=== PATIENT | female | born 1935 | race Caucasian/White ===

== ENCOUNTER 2018-06-29 04:00 | Emergency (ER) | payer MEDICARE, OTHER ==
[~2018-06-29] VITALS: Ht 160 cm; Wt 76.2 kg
[2018-06-29 04:15] LABS: BASOPHILS # (AUTO) 0.1 (0.0-0.1); BASOPHILS % 0.5 % (0.0-1.0); EOSINOPHILS # (AUTO) 0.1 (0.0-0.4); EOSINOPHILS % 0.6 % (0.0-6.0); HEMATOCRIT 40.5 % (34.2-44.1); HEMOGLOBIN 13.4 g/dL (12.0-16.0); LYMPHOCYTES # (AUTO) 1.4 (1.0-3.2); LYMPHOCYTES % 12.3 % (18.0-39.1); MEAN CORPUSCULAR HEMOGLOBIN 30.6 pg (28-32); MEAN CORPUSCULAR HGB CONC 33.1 g/dL (31-35); MEAN CORPUSCULAR VOLUME 92.5 fL (81-99); MONOCYTES # (AUTO) 0.7 (0.2-0.8); MONOCYTES % 6.1 % (4.4-11.3); NEUTROPHILS # (AUTO) 9.3 (2.1-6.9); NEUTROPHILS % 80.2 % (38.7-80.0); PLATELET COUNT 281 x10e3/uL (140-360); RED BLOOD COUNT 4.38 x10e6/uL (3.6-5.1); RED CELL DISTRIBUTION WIDTH 12.9 % (11.7-14.4)
[2018-06-29 04:24] LABS: INR 1.07; PROTHROMBIN TIME 13.1 seconds (11.9-14.5)
[2018-06-29 04:25] LABS: PARTIAL THROMBOPLASTIN TIME 27.7 seconds (23.8-35.5)
[2018-06-29 04:33] LABS: ALBUMIN 3.4 g/dL (3.5-5.0); ALBUMIN/GLOBULIN RATIO 0.9 (0.8-2.0); ANION GAP 13.2 mmol/L (8-16); CALCIUM 9.4 mg/dL (8.4-10.2); CREATININE, SERUM 0.92 mg/dL (0.57-1.11); POTASSIUM 4.2 mmol/L (3.5-5.1)
[2018-06-29] MEDS ORDERED: ONDANSETRON HCL INJ 2 MG/ML VIAL IV STA (05:29)
[2018-06-29] MEDS ORDERED: MORPHINE SULFATE INJ 4 MG/ML INJ IV PRN (05:30)
[2018-06-29] MEDS ORDERED: MORPHINE SULFATE 2 MG/ML SYR ONE (05:40)
--- NOTE | 2018-06-29 05:40 | Diagnostic Imaging Report ---
Exam: CT of the pelvis without IV contrast Indication: Fall, left hip pain Comparison: None Findings: CT of the pelvis was performed using routine protocol without the administration of IV contrast. Dose modulation, iterative reconstruction, and/or weight based adjustment of the mA/kV was utilized to reduce the radiation dose to as low as reasonably achievable. Old right intertrochanteric fracture stabilized with internal medullary diaz and interlocking screw. No evidence of an acute fracture. Faint lucencies in the sacrum near the bilateral sacroiliac joint likely reflects chronic insufficiency fractures. The bones are demineralized. Degenerative changes of the pelvis and hips. No acute intrapelvic pathology. The uterus and ovaries are not visualized. Impression: No evidence of a left hip fracture. Signed by: Dr. Laura James M.D. on 06/29/2018 5:14 AM
--- NOTE | 2018-06-29 05:41 | Diagnostic Imaging Report ---
EXAM: ELBOW LEFT COMPLETE, AP, lateral and oblique INDICATION: Fall, left elbow pain COMPARISON: None FINDINGS: Rotated lateral view. BONES: No acute fractures. JOINTS: No malalignment. Degenerative changes of the elbow. SOFT TISSUES: IV catheter in the antecubital fossa. IMPRESSION: No acute left elbow fracture. Signed by: Dr. Laura James M.D. on 06/29/2018 5:14 AM
--- NOTE | 2018-06-29 06:37 | Diagnostic Imaging Report ---
History: Fall. Comparison studies: None Technique: Axial images were obtained through the cervical region.. Coronal and sagittal images reconstructed from the axial data. Dose modulation, iterative reconstruction, and/or weight based adjustment of the mA/kV was utilized to reduce the radiation dose to as low as reasonably achievable. Intravenous contrast: None Findings: Fractures: None. Soft tissue injuries: None. Atlantoaxial articulation: Intact. Alignment: Loss of normal cervical lordosis is either positional or due to muscle spasm. No scoliosis. Cervicomedullary junction: No abnormalities. The foramen magnum is patent. Soft tissues: 8 mm hypodense nodule in right lobe of the thyroid gland. Vertebrae: No fractures, infection or neoplasm. Degenerative changes: C3-C4: Posterior disc osteophyte complex without canal stenosis. Severe right foraminal stenosis due to facet and uncovertebral arthrosis. C4-5: Bilateral uncovertebral arthrosis without significant foraminal stenosis. C5-C6: Mild degenerative disc disease. Mild right foraminal stenosis due to facet and uncovertebral arthrosis. C6-C7: Mild right foraminal stenosis due to facet and uncovertebral arthrosis. IMPRESSION: 1. No acute cervical spine fracture/dislocation. Loss of normal cervical lordosis is either positional or due to muscle spasm. 2. Ligament, spinal cord and or vascular abnormalities cannot be excluded on the basis of this examination. 3. Cervical spondylosis as detailed above. Signed by: Dr. Medina Peña M.D. on 06/29/2018 6:33 AM
--- NOTE | 2018-06-29 06:39 | Diagnostic Imaging Report ---
EXAMINATION: Head CT without contrast. HISTORY:Fall. COMPARISON:None. TECHNIQUE: Multidetector axial images were obtained from the foramen magnum to the vertex without contrast. The images were reconstructed using brain and bone algorithms. Thin section brain images were reformatted into coronal and sagittal planes. Dose modulation, iterative reconstruction, and/or weight based adjustment of the mA/kV was utilized to reduce the radiation dose to as low as reasonably achievable. Intravenous contrast: None IMAGE QUALITY: Acceptable. FINDINGS: Skull/scalp: No lytic or blastic. lesions. No surgical changes. Parenchyma: Nonspecific few, scattered supratentorial white matter hypodensity are likely related to small vessel ischemic changes. 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 No acute hemorrhage, mass or acute major vascular territorial infarct. Arteries: No density suggestive of thrombosis. Mild atherosclerotic calcification in bilateral carotid siphon. Dural sinuses: No abnormal density suggestive of thrombosis. Ventricles: Mild compensated dilatation due to volume loss. No hydrocephalus. Extra-axial spaces: No abnormal density. Brain volume: Normal for age. Craniocervical junction: No mass, Chiari malformation, or basilar invagination. Sella: No mass. Paranasal/mastoid sinuses: Imaged portions unremarkable. IMPRESSION: No acute intracranial abnormality. Mild supratentorial white matter microvascular ischemic changes. Mild generalized age-related cerebral volume loss. Signed by: Dr. Medina Peña M.D. on 06/29/2018 6:36 AM
[2018-06-29 07:18] VITALS: BP 142/66
== END 2018-06-29 07:48 | disposition home or self-care (01) ==
LOC: ER 04:00
DX: S00.83XA Contusion of other part of head, initial encounter (principal); S50.01XA Contusion of right elbow, initial encounter; S70.02XA Contusion of left hip, initial encounter; W06.XXXA Fall from bed, initial encounter; Y93.84 Activity, sleeping; Y92.128 Other place in nursing home as the place of occurrence of the external cause
CPT/HCPCS: 36415; 70450; 72125; 72192; 73080; 80053; 85025; 85610; 85730; 93005; 99284; J2270; J2405

== ENCOUNTER 2019-04-23 22:18 | Emergency (ER) | payer MEDICARE, OTHER ==
[~2019-04-23] VITALS: Ht 160 cm; Wt 76.2 kg
--- OUTSIDE RECORDS SUMMARY | 2019-04-23 22:21 | XMS REPORT ---
Author Author [facility] Address Unknown Phone Unavailable Care Team Providers Care Counselor Aide Name Role Phone Nickolas OCONNOR Unavailable Unavailable Payers Payer Name Policy Type Policy Number Effective Date Expiration Date Problems This patient has no known problems. Allergies, Adverse Reactions, Alerts Allergy Name Allergy Type Status Severity Reaction(s) Onset Date Inactive Date Treating Clinician Comments meclizine DA Active [place] 2015-04-02 00:00:00 penicillin G DA Active [place] 2014-02-05 00:00:00 Medications This patient has no known medications. Results Test Description Test Time Test Comments Text Results Atomic Results Result Comments CT CERVICAL SPINE WO 2018-06-29 06:29:00 [place] [address] Patient Name: IGGY STALLINGS MR #: [id number] : 1935 Age/Sex: 82/F Req #: [id number] [facility] Physician: Ordered by: JAMIE OCONNOR MD Report #: [id number] Location: ER Room/Bed: Procedure: [id number] CT/CT CERVICAL SPINE WO Exam Date: 06/29/18 Exam Time: 06 REPORT STATUS: Signed History: Fall. Comparison studies: None Technique: Axial images were obtained through the cervical region.. Coronal and sagittal images reconstructed from the axial data. Dose modulation, iterative reconstruction, and/or weight based adjustment of the mA/kV was utilized to reduce the radiation dose to as low as reasonably achievable. Intravenous contrast: None Findings: Fractures: None. Soft tissue injuries: None. Atlantoaxial articulation: Intact. Alignment: Loss of normal cervical lordosis is either positional or due to muscle spasm. No scoliosis. Cervicomedullary junction: No abnormalities. The foramen magnum is patent. Soft tissues: 8 mm hypodense nodule in right lobe of the thyroid gland. Vertebrae: No fractures, infection or neoplasm. Degenerative changes: C3-C4: Posterior disc osteophyte complex without canal stenosis. Severe right foraminal stenosis due to facet and uncovertebral arthrosis. C4-5: Bilateral uncovertebral arthrosis without significant foraminal stenosis. C5-C6: Mild degenerative disc disease. Mild right foraminal stenosis due to facet and uncovertebral arthrosis. C6-C7: Mild right foraminal stenosis due to facet and uncovertebral arthrosis. IMPRESSION: 1. No acute cervical spine fracture/dislocation. Loss of normal cervical lordosis is either positional or due to muscle spasm. 2. Ligament, spinal cord and or vascular abnormalities cannot be excluded on the basis of this examination. 3. Cervical spondylosis as detailed above. Signed by: Dr. Medina Peña M.D. on 06/29/2018 6:33 AM Dictated By: MEDINA PEÑA MD 2 Transcribed By: OMAR on 06/29/18632 COPY TO: JAMIE OCONNOR MD CT BRAIN WO 2018-06-29 06:27:00 [place] [address] Patient Name: IGGY STALLINGS MR #: [id number] : 1935 Age/Sex: 82/F Req #: [id number] Adm Physician: Ordered by: JAMIE OCONNOR MD Report #: [id number] Location: Room/Bed: Procedure: [id number] CT/CT BRAIN WO Exam Date: 06/29/18 Exam Time: 604 REPORT STATUS: Signed EXAMINATION: Head CT without contrast. HISTORY:Fall. COMPARISON:None. TECHNIQUE: Multidetector axial images were obtained from the foramen magnum to the vertex without contrast. The images were reconstructed using brain and bone algorithms. Thin section brain images were reformatted into coronal and sagittal planes. Dose modulation, iterative reconstruction, and/or weight based adjustment of the mA/kV was utilized to reduce the radiation dose to as low as reasonably achievable. Intravenous contrast: None IMAGE QUALITY: Acceptable. FINDINGS: Skull/scalp: No lytic or blastic. lesions. No surgical changes. Parenchyma: Nonspecific few, scattered supratentorial white matter hypodensity are likely related to small vessel ischemic changes. 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 No acute hemorrhage, mass or acute major vascular territorial infarct. Arteries: No density suggestive of thrombosis. Mild atherosclerotic calcification in bilateral carotid siphon. Dural sinuses: No abnormal density suggestive of thrombosis. Ventricles: Mild compensated dilatation due to volume loss. No hydrocephalus. Extra-axial spaces: No abnormal density. Brain volume: Normal for age. Craniocervical junction: No mass, Chiari malformation, or basilar invagination. Sella: No mass. Paranasal/mastoid sinuses: Imaged portions unremarkable. IMPRESSION: No acute intracranial abnormality. Mild supratentorial white matter microvascular ischemic changes. Mild generalized age-related cerebral volume loss. Signed by: Dr. Medina Peña M.D. on 06/29/2018 6:36 AM Dictated By: MEDINA PEÑA MD 5 Transcribed By: OMAR on 06/29/18635 COPY TO: JAMIE OCONNOR MD CT PELVIS WO 2018-06-29 05:07:00 [place] [address] Patient Name: IGGY STALLINGS MR #: [id number] : 1935 Age/Sex: 82/F Req #: [id number] Adm Physician: Ordered by: JAMIE OCONNOR MD Report #: [id number] Location: ER Room/Bed: Procedure: [id number] CT/CT PELVIS WO Exam Date: 06/29/18 Exam Time: 441 REPORT STATUS: Signed Exam: CT of the pelvis without IV contrast Indication: Fall, left hip pain Comparison: None Findings: CT of the pelvis was performed using routine protocol without the administration of IV contrast. Dose modulation, iterative reconstruction, and/or weight based adjustment of the mA/kV was utilized to reduce the radiation dose to as low as reasonably achievable. Old right intertrochanteric fracture stabilized with internal medullary diaz and interlocking screw. No evidence of an acute fracture. Faint lucencies in the sacrum near the bilateral sacroiliac joint likely reflects chronic insufficiency fractures. The bones are demineralized. Degenerative changes of the pelvis and hips. No acute intrapelvic pathology. The uterus and ovaries are not visualized. Impression: No evidence of a left hip fracture. Signed by: Dr. Maria A Hunt M.D. on 06/29/2018 5:14 AM Dictated By: MARIA A HUNT MD 3 Transcribed By: OMAR on 06/29/18513 COPY TO: JAMIE OCONNOR MD ELBOW LEFT COMPLETE 2018-06[place]29 05:05:[facility] [place] [address] Patient Name: IGGY STALLINGS MR #: [id number] : 1935 Age/Sex: 82/F Req #: [id number] Adm Physician: Ordered by: JAMIE OCONNOR MD Report #: [id number] Location: ER Room/Bed: Procedure: [id number] DX/ELBOW LEFT COMPLETE Exam Date: 06/29/18 Exam Time: 0449 REPORT STATUS: Signed EXAM: ELBOW LEFT COMPLETE, AP, lateral and oblique INDICATION: Fall, left elbow pain COMPARISON: None FINDINGS: Rotated lateral view. BONES: No acute fractures. JOINTS: No malalignment. Degenerative changes of the elbow. SOFT TISSUES: IV catheter in the antecubital fossa. IMPRESSION: No acute left elbow fracture. Signed by: Dr. Maria A Hunt M.D. on 06/29/2018 5:14 AM Dictated By: MARIA A HUNT MD 3 Transcribed By: OMAR on 06/29/18513 COPY TO: JAMIE OCONNOR MD
--- NOTE | 2019-04-23 23:40 | Diagnostic Imaging Report ---
History:Fall, altered mental status Comparison studies: None Technique: Axial images were obtained from the skull base to the vertex. Coronal and sagittal images reconstructed from the axial data. Dose modulation, iterative reconstruction, and/or weight based adjustment of the mA/kV was utilized to reduce the radiation dose to as low as reasonably achievable. Intravenous contrast: None Findings: Scalp/skull: No abnormalities. Extra-axial spaces: No masses. No fluid collections. Brain sulci: Mildly prominent but appropriate for age. Ventricles: Normal in size and configuration. No hydrocephalus. Parenchyma: Follow hypodensities in the supratentorial white matter are small vessel ischemic changes. No masses, hemorrhage, acute or chronic cortical vascular insults. Sellar/suprasellar region: No abnormalities. Craniocervical junction: Patent foramen magnum. No Chiari one malformation. Incidental findings: Atherosclerotic calcifications in the carotid siphons . Impression: No acute abnormalities. Chronic findings: 1. Mild age related generalized volume loss 2. Minimal supratentorial white matter small vessel ischemic changes. Signed by: Dr. Hal Ho M.D. on 04/23/2019 11:37 PM
--- NOTE | 2019-04-23 23:44 | Diagnostic Imaging Report ---
History: Fall, altered mental status Comparison studies: None Technique: Axial images were obtained through the cervical region.. Coronal and sagittal images reconstructed from the axial data. Dose modulation, iterative reconstruction, and/or weight based adjustment of the mA/kV was utilized to reduce the radiation dose to as low as reasonably achievable. Intravenous contrast: None Findings: Fractures: None. Soft tissues: No gross abnormalities. Atlantoaxial articulation: Moderately degenerated.. Alignment: Straightening of the usual lordosis is probably positional.. No scoliosis. Cervicomedullary junction: No abnormalities. The foramen magnum is patent. Vertebrae: No infection or neoplasm. Degenerative changes: 1. Mildly degenerated discs from C3 to C7. 2. Degenerated fused facets on the left at C2-3 degenerated on the right at C2-3 and from C3 through C5, worse on the right at C3-4. 3. Foraminal stenosis is moderate right at C3-4 due to facet and uncoarthrosis. 4. Patent spinal canal. IMPRESSION: 1. No acute abnormalities. No fractures 2. Cannot adequately evaluate for ligament, spinal cord and or vascular abnormalities. 3. Degenerative changes as described Signed by: Dr. Hal Ho M.D. on 04/23/2019 11:41 PM
--- NOTE | 2019-04-23 23:51 | Diagnostic Imaging Report ---
Exam: AP pelvis 2 views History: Fall Comparison: None. Findings: No acute fracture. Fixation of the right femur with femoral neck screw and intramedullary diaz. Degenerative arthrosis of the hips. Impression: No acute displaced fracture Signed by: Dr. Chip Rodriguez M.D. on 04/23/2019 11:48 PM
--- NOTE | 2019-04-23 23:58 | Diagnostic Imaging Report ---
Examination: Single AP view of the chest. COMPARISON: None. INDICATION: Fall DISCUSSION: Lines/tubes: Sternotomy wires. Lungs: The lungs are well inflated and clear. No pneumonia or pulmonary edema. Pleura: No pleural effusion or pneumothorax. Heart and mediastinum: Cardiomegaly Bones and soft tissues: No acute bony abnormalities. IMPRESSION: 1. No acute cardiopulmonary abnormalities. Signed by: Dr. Chip Rodriguez M.D. on 04/23/2019 11:54 PM
--- NOTE | 2019-04-24 01:25 | NUR ---
REPORT GIVEN TO [facility]. FAMILY AT BEDSIDE
== END 2019-04-24 01:32 ==
LOC: ER 22:18
DX: S00.83XA Contusion of other part of head, initial encounter (principal); W05.0XXA Fall from non-moving wheelchair, initial encounter; Y92.129 Unspecified place in nursing home as the place of occurrence of the external cause; W01.0XXA Fall on same level from slipping, tripping and stumbling without subsequent striking against object, initial encounter; F03.90 Unspecified dementia, unspecified severity, without behavioral disturbance, psychotic disturbance, mood disturbance, and anxiety; I10 Essential (primary) hypertension; E11.9 Type 2 diabetes mellitus without complications; I48.91 Unspecified atrial fibrillation; E03.9 Hypothyroidism, unspecified; D64.9 Anemia, unspecified; K21.9 Gastro-esophageal reflux disease without esophagitis
CPT/HCPCS: 70450; 71045; 72125; 72170; 99284

== ENCOUNTER 2019-04-28 21:22 | Observation (INO) | payer MEDICARE, OTHER ==
[~2019-04-28] VITALS: Ht 160 cm; Wt 76.2 kg
[2019-04-28 21:45] LABS: BASOPHILS # (AUTO) 0.1 (0.0-0.1); BASOPHILS % 0.6 % (0.0-1.0); EOSINOPHILS # (AUTO) 0.2 (0.0-0.4); EOSINOPHILS % 1.8 % (0.0-6.0); HEMATOCRIT 39.9 % (34.2-44.1); HEMOGLOBIN 13.7 g/dL (12.0-16.0); LYMPHOCYTES # (AUTO) 1.9 (1.0-3.2); LYMPHOCYTES % 22.2 % (18.0-39.1); MEAN CORPUSCULAR HEMOGLOBIN 31.4 pg (28-32); MEAN CORPUSCULAR HGB CONC 34.3 g/dL (31-35); MEAN CORPUSCULAR VOLUME 91.5 fL (81-99); MONOCYTES # (AUTO) 0.6 (0.2-0.8); MONOCYTES % 7.7 % (4.4-11.3); NEUTROPHILS # (AUTO) 5.6 (2.1-6.9); NEUTROPHILS % 67.3 % (38.7-80.0); PLATELET COUNT 261 x10e3/uL (140-360); RED BLOOD COUNT 4.36 x10e6/uL (3.6-5.1); RED CELL DISTRIBUTION WIDTH 13.7 % (11.7-14.4)
[2019-04-28 22:01] LABS: ALANINE AMINOTRANSFERASE 19 IU/L (0-55); ALBUMIN 3.7 g/dL (3.5-5.0); ALBUMIN/GLOBULIN RATIO 0.9 (0.8-2.0); ALKALINE PHOSPHATASE 124 IU/L (40-150); ANION GAP 14.3 mmol/L (8-16); BLOOD UREA NITROGEN 21 mg/dL (7-26); BUN/CREATININE RATIO 23 (6-25); CALCIUM 10.1 mg/dL (8.4-10.2); CARBON DIOXIDE 26 mmol/L (22-29); CHLORIDE 103 mmol/L (98-107); CREATINE KINASE 76 IU/L (29-168); EST GLOMERULAR FILTRATION RATE 60 ML/MIN (60-); GLUCOSE 102 mg/dL (74-118); POTASSIUM 4.3 mmol/L (3.5-5.1); SODIUM 139 mmol/L (136-145)
--- NOTE | 2019-04-28 23:37 | Diagnostic Imaging Report ---
History:AMS Comparison studies:CT head 04/23/2019 Technique: Axial images were obtained from the skull base to the vertex. Coronal and sagittal images reconstructed from the axial data. Intravenous contrast: None Dose modulation, iterative reconstruction, and/or weight based adjustment of the mA/kV was utilized to reduce the radiation dose to as low as reasonably achievable. Findings: Scalp/skull: No abnormalities. Extra-axial spaces: No masses. No fluid collections. Brain sulci: Mildly prominent. Ventricles: Mild compensatory dilatation. No hydrocephalus. Parenchyma: Few hypodensities in the supratentorial white matter are small vessel ischemic changes. No masses, hemorrhage, acute or chronic cortical vascular insults. Sellar/suprasellar region: No abnormalities. Craniocervical junction: Patent foramen magnum. No Chiari one malformation. Incidental findings: Atherosclerotic calcifications in the carotid siphons . Impression: No acute abnormalities. Chronic findings: 1. Mild generalized volume loss. 2. Mild supratentorial white matter small vessel ischemic changes. Signed by: DR Carmelo Zhao M.D. on 04/28/2019 11:33 PM
[2019-04-29] VITALS (7 sets, daily range): BP systolic 132–146; BP diastolic 50–65
[2019-04-29] MEDS ORDERED: DEXTROSE 5%/0.45% SOD CHL 1,000 ML IV ONE (02:15)
[2019-04-29] MEDS ORDERED: MULTIVITAMINS1 EAC7 PO (02:21)
[2019-04-29] MEDS ORDERED: LIPITOR20 MG PO (02:21)
[2019-04-29] MEDS ORDERED: DOCUSATE SODIU100 MG PO (02:21)
[2019-04-29] MEDS ORDERED: OMEPRAZOLE40 MG PO (02:21)
[2019-04-29] MEDS ORDERED: MIRALAX17 GM PO (02:21)
[2019-04-29] MEDS ORDERED: TYLENOL325 MG PO ×2 (02:21)
[2019-04-29] MEDS ORDERED: FISH OIL 1,0001 EAC2 PO (02:21)
[2019-04-29] MEDS ORDERED: [UNRECOGNIZED DRUG - OTHER] OU (02:21)
[2019-04-29] MEDS ORDERED: VITAMIN C500 M1 PO (02:21)
[2019-04-29] MEDS ORDERED: LEVOTHYROXINE50 MCG PO (02:21)
[2019-04-29] MEDS ORDERED: CLONIDINE HCL0.1 MG PO (02:21)
--- NOTE | 2019-04-29 02:30 | NUR ---
RECEIVED PATIENT FROM ER VIA STRETCHER. PATIENT UNRESPONSIVE AND UNABLE TO FOLLOW COMMANDS. NO RESP DISTRESS. HX OF ADVANCED DEMENTIA. DAUGHTER AT BEDSIDE. BED ALARM ON.
--- NOTE | 2019-04-29 07:30 | NUR ---
REC'D PATIENT AAOX1, LAYING ON SEMI-FOWLERS POSITION, DAUGHTER AT THE BEDSIDE, PATIENT WEARING BRIEF, ON NASAL CANNULA 3L/MIN, NO S/S OF DISTRESS. DAUGHTER IS POA AND IS REQUESTING HOSPICE CARE AND CASE MGT HAS BEEN NOTIFIED. BED IN LOWEST POSITION, SIDE RAILS UPX2, AND BED IN LOWEST POSITION.
[2019-04-29] MEDS ORDERED: POLYETHYLENE GLYCOL 3350 17 GM PACK PO SCH (10:00)
[2019-04-29 10:31] LABS: FREE THYROXINE INDEX 3.7639 (1.4-3.8); THYROID STIMULATING HORMONE 4.299 uIU/mL (0.350-4.940)
--- NOTE | 2019-04-29 11:00 | NUR ---
APPLIED NYSTATIN POWDER UNDER BILATERAL BREASTS
--- NOTE | 2019-04-29 11:12 | NUR ---
SPOKE WITH FAMILY ABOUT HOSPICE, SIGNED CHOICE TO [facility] NOTIFIED REP WITH PLAN TO GO HOME TODAY
--- NOTE | 2019-04-29 12:50 | NUR ---
HOSPICE HAS BEEN ARRANGED FOR PATIENT. NOTIFIED DR. DESAI FOR DISCHARGE ORDER. DR. DESAI SAID NO BECAUSE DR. GARCIA (CONSULTED) HAS NOT SEEN PATIENT YET.
--- NOTE | 2019-04-29 13:41 | NUR ---
SPOKE WITH NURSE GUTIERREZ, SHE STATES DR DESAI WILL NOT DISCHARGE PT UNTIL DR GARCIA SEES HER, I LET DR GARCIA KNOW THE PT IS PENDING DISCHARGE WITH HOSPICE.
--- NOTE | 2019-04-29 14:11 | NUR ---
PATIENT'S FAMILY IS DECIDED TO REFUSE NEUROLOGIST CONSULT (DR. GARCIA). PAGED DR. DESAI ABOUT PATIENT'S CHANGE OF MIND. Addendum: 04/29/19 at 1415 by IZAIAH ANTHONY RN PAGENargis DESAI ABOUT PATIENT'S FAMILY CHANGE OF MIND.
--- NOTE | 2019-04-29 14:43 | NUR ---
FAMILY REFUSED PHYSICAL THERAPY.
--- NOTE | 2019-04-29 15:11 | NUR ---
DR. GARCIA SAW PATIENT AND FAMILY. SHE TALKED TO THE DAUGHTER REGARDING THEIR DECISION TO REFUSE THE CONSULT AND THAT SHE RESPECTED THEIR DECISION.
--- NOTE | 2019-04-29 15:25 | NUR ---
PAGED DR. DESAI FOR THE SECOND TIME TO SEE IF HE WILL GIVE OK TO D/C PATIENT FOR HOME HOSPICE.
--- NOTE | 2019-04-29 15:59 | History and Physical ---
HISTORY OF PRESENT ILLNESS: The patient of Dr. Galvez, Dr. Jones, admitted through the emergency room from [facility] with a history of falling approximately 5 days ago and 7 times in the last month. Has been unable to feed herself. She has been in decline since her fall. Also had history of shaking, history of an old ND in the past. prison resident for the last 4 years. She has had bypass surgery 30 years ago, multiple coronary stents. FAMILY HISTORY: Positive for cancer and coronary artery disease. SOCIAL HISTORY: She was born in [place], [place]. 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 ALLERGIES: PENICILLIN AND BEE STINGS. She has not been eating well. She awakens, in no acute distress. History of urinary incontinence, history of dysphagia, coronary artery disease. She has been evaluated in the past for normal pressure hydrocephalus. PHYSICAL EXAMINATION: GENERAL: She is a well-developed white female, looking older than her stated age. VITAL SIGNS: Temperature 96.9, pulse 76, respirations 20, blood pressure 168/80. HEENT: Head is normocephalic, atraumatic. Eyes, extraocular movements intact. LUNGS: Clear. HEART: Regular rhythm. Median sternotomy scar well healed. ABDOMEN: Nontender. EXTREMITIES: Nonedematous. She has been in decline. Family requests hospice evaluation. DNR status. Continue home medications, which include Artificial Tears, Lipitor, Colace, Levoxyl, vitamins, Protonix, MiraLAX. We will hold the clonidine in attempt to adjust her blood pressure medicine. Consider aspirin, prophylactic heparin. Neurology opinion has been requested from Dr. Norton. MD MAIRA Hill/MODL /[id number]
[2019-04-29] MEDS ORDERED: LOSARTAN POTASS25 MG PO (16:41)
--- NOTE | 2019-04-29 16:46 | NUR ---
CALL MADE TO DR. DESAI FOR DC ORDERS. CALLED CHERELLE, TO CM. INFORMED TORRES PT'S FAMILY DID NOT WANT THE NEURO CONSULT AND DR. GARCIA HAD MET W THEM. INFORMED THE FAMILY WAS AT THE BEDSIDE AWAITING DC ORDERS TO TRANSPORT HOME W HOSPICE. DC ORDER WAS GIVEN. MET W THE DTR TO INFORM ORDER WAS RECEIVED. IMM LETTER WAS EXPLAINED. DTR SIGNED. COPY TO PT AND COPY TO CHART. SW NOTIFIED. CALL TO [facility] TO INITIATE TRANSPORT HOME.
[2019-04-29] MEDS ORDERED: NYSTATIN 15 GM POWDER UD BTL TOP SCH (17:00)
--- NOTE | 2019-04-29 17:00 | NUR ---
GISELLE GAVE DISCHARGE ORDER FOR PATIENT TO GO HOME ON HOSPICE.
--- NOTE | 2019-04-29 17:46 | NUR ---
PATIENT IS SLEEPING WITH EYES CLOSED WITH UNLABORED BREATHING. PATIENT IS KEPT COMFORTABLE AND NO S/S OF DISTRESS. DAUGHTER AT BEDSIDE. SIDE RAILS UP X2, BED IN LOWEST POSITION, AND CALL GUTIERRES WITHIN REACH.
--- NOTE | 2019-04-29 18:05 | NUR ---
PATIENT TWO IVs HAVE BEEN REMOVED. NO COMPLICATIONS TO SITE. APPLIED PRESSURE WITH GAUZE AND PAPER TAPE. 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 NO S/S OF DISTRESS. FAMILY AT THE BEDSIDE.
--- NOTE | 2019-04-29 18:55 | Discharge Summary ---
HOSPITAL COURSE: The patient of Dr. Galvez, unfortunate 83-year-old woman with a history of dementia, history of hypothyroidism, and presumed normal pressure hydrocephalus. Admitted to the hospital with falls, which have become more frequent. When seen this morning, the day of admission, the family agreed to neurologic evaluation. They were considering hospice care. However, when called this afternoon, reports that the patient's family has decided to defer neurologic evaluation and requests discharge to [facility]. Given prescription for losartan 12.5 mg. Continue Tylenol No.3, vitamin C, Lipitor 20 mg, clonidine 0.1 mg q.8 h. p.r.n. blood pressure over 170, Colace, Levoxyl, multivitamin, omeprazole, and MiraLAX. She is discharged to hospice at the family's request. MD MAIRA Hill/ROYAL /[id number]
[2019-04-29] MEDS ORDERED: ATORVASTATIN 20 MG TAB PO SCH (21:00)
[2019-04-29] MEDS ORDERED: HEPARIN SOD (PORCINE) 5,000 UNIT/ML VIAL SC SCH (21:00)
[2019-04-30] MEDS ORDERED: LEVOTHYROXINE SODIUM 25 MCG TABLET PO SCH (06:00)
[2019-04-30] MEDS ORDERED: PANTOPRAZOLE SOD 40 MG TABEC PO SCH (07:30)
[2019-04-30] MEDS ORDERED: MULTIVITAMINS/MINERALS TAB PO SCH (09:00)
[2019-04-30] MEDS ORDERED: ARTIFICIAL TEARS (OPTH) 15 ML BTL OU SCH (09:00)
[2019-04-30] MEDS ORDERED: ASPIRIN 81 MG ENTERIC COATED PO SCH (09:00)
[2019-04-30] MEDS ORDERED: LOSARTAN POTASSIUM 25 MG TAB PO SCH (09:00)
[2019-04-30] MEDS ORDERED: DOCUSATE SODIUM 100 MG CAP PO SCH (09:00)
== END 2019-04-29 18:16 | disposition hospice, home (50) ==
LOC: ER 21:22 → ERHOLD 04-29 02:03 → MED/SURG3 04-29 02:52
PROVIDERS: ADMIT Internal Medicine; ATTEND Internal Medicine
DX: G91.2 (Idiopathic) normal pressure hydrocephalus (principal); F03.90 Unspecified dementia, unspecified severity, without behavioral disturbance, psychotic disturbance, mood disturbance, and anxiety; E03.9 Hypothyroidism, unspecified; Z91.81 History of falling; R62.7 Adult failure to thrive; Z68.29 Body mass index [BMI] 29.0-29.9, adult; Z66 Do not resuscitate; I25.2 Old myocardial infarction
CPT/HCPCS: 36415 ×2; 70450; 80053; 82550; 82553; 82948; 84436; 84443; 84479; 84484; 85025; 92526; 92610; 93005; 97139; 99284; G0378